=== PATIENT | female | born 1985 | race Caucasian/White ===

== ENCOUNTER 2019-10-12 13:50 | Emergency (ER) | payer BC ==
[~2019-10-12] VITALS: Ht 157.5 cm; Wt 52.2 kg
[2019-10-12] MEDS ORDERED: KEFLEX500 MG PO (15:55)
[2019-10-12] MEDS ORDERED: PYRIDIUM200 MG PO (15:55)
== END 2019-10-12 16:15 | disposition home or self-care (01) ==
LOC: ED 13:50
DX: N30.90 Cystitis, unspecified without hematuria (principal)
CPT/HCPCS: 99283; A9270